=== PATIENT | female | born 1965 | race Caucasian/White ===

== ENCOUNTER 2016-07-18 23:35 | Emergency (ER) | payer SELFPAY ==
[2016-07-19 00:37] LABS: Basophils % (Auto) 0.9 % (0.0-1.8); Eosinophils % (Auto) 3.2 % (0.0-4.3); Hemoglobin 15.7 gm/dl (10.1-14.3); Mean Corpuscular HGB Conc 34 % (30-34); Mean Corpuscular Hemoglobin 29 pg (28-32); Mean Corpuscular Volume 84 fl (79-97); Platelet Count 254 K/mm3 (140-440); Red Blood Count 5.45 M/mm3 (3.65-5.03); Red Cell Distribution Width 12.5 % (13.2-15.2); White Blood Count 6.6 K/mm3 (4.5-11.0)
[2016-07-19 00:49] LABS: INR 1.03 (0.87-1.13)
[2016-07-19 01:00] LABS: Anion Gap 20 mmol/L; Blood Urea Nitrogen 12 mg/dL (7-17); Calcium 9.5 mg/dL (8.4-10.2); Carbon Dioxide 25 mmol/L (22-30); Chloride 98.2 mmol/L (98-107); Glucose 241 mg/dL (65-100); Potassium 3.9 mmol/L (3.6-5.0); Sodium 139 mmol/L (137-145)
[2016-07-19] MEDS ORDERED: TYLENOL PO ONE (05:17)
[2016-07-19 05:18] VITALS: BP 112/73
--- NOTE | 2016-07-21 14:29 | ED Elopement Review ---
ED Pt Elopement review - Results review Lab results: Laboratory Tests 07/19/16 07/19/16 07/19/16 00:18 00:18 00:18 WBC 6.6 RBC 5.45 H Hgb 15.7 H Hct 46.0 H MCV 84 MCH 29 MCHC 34 RDW 12.5 L Plt Count 254 Lymph % (Auto) 34.9 Hamilton % (Auto) 10.6 H Eos % (Auto) 3.2 Baso % (Auto) 0.9 Lymph # 2.3 Hamilton # 0.7 Eos # 0.2 Baso # 0.1 Seg Neutrophils % 50.4 Seg Neutrophils # 3.3 PT 13.4 INR 1.03 APTT 31.0 Carbon Dioxide 25 BUN 12 Creatinine 0.5 L Estimated GFR > 60 BUN/Creatinine Ratio 24.00 Glucose 241 H Calcium 9.5 Troponin T < 0.010 07/19/16 07/19/16 03:17 06:14 WBC RBC Hgb Hct MCV MCH MCHC RDW Plt Count Lymph % (Auto) Hamilton % (Auto) Eos % (Auto) Baso % (Auto) Lymph # Hamilton # Eos # Baso # Seg Neutrophils % Seg Neutrophils # PT INR APTT Carbon Dioxide BUN Creatinine Estimated GFR BUN/Creatinine Ratio Glucose Calcium Troponin T < 0.010 < 0.010 - Call Back decision Pt Call Back Decision: No action required
== END 2016-07-19 07:57 | disposition left against medical advice (07) ==
LOC: ED 23:35
DX: R51 Headache (principal); R07.9 Chest pain, unspecified; R00.2 Palpitations; Z53.21 Procedure and treatment not carried out due to patient leaving prior to being seen by health care provider
CPT/HCPCS: 36415; 80048; 84484; 85025; 85610; 85730; 93005; 93010

== ENCOUNTER 2017-03-04 02:09 | Emergency (ER) | payer BC ==
[2017-03-04 02:15] VITALS: BP 121/85
[2017-03-04] MEDS ORDERED: DILAUDID ONE (02:22)
[2017-03-04] MEDS ORDERED: ZOFRAN ODT ONE (02:22)
[2017-03-04] MEDS ORDERED: DILAUDID IM ONE (02:38)
[2017-03-04] MEDS ORDERED: ZOFRAN ODT PO ONE (02:38)
[2017-03-04] MEDS ORDERED: THERMAZENE 50 GRAM TP ONE (03:14)
[2017-03-04] MEDS ORDERED: BOOSTRIX IM ONE (03:14)
[2017-03-04] MEDS ORDERED: PERCOCET 5/325 PO ONE ×2 (03:22→03:57)
[2017-03-04] MEDS ORDERED: PERCOCET 5/325 ONE (03:25)
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
[2017-03-04] MEDS ORDERED: TORADOL IM ONE (03:57)
== END 2017-03-04 04:15 | disposition home or self-care (01) ==
LOC: ED 02:09
DX: T23.271A Burn of second degree of right wrist, initial encounter (principal); T31.0 Burns involving less than 10% of body surface; E11.9 Type 2 diabetes mellitus without complications; X08.8XXA Exposure to other specified smoke, fire and flames, initial encounter; Y93.89 Activity, other specified; Y99.8 Other external cause status; Y92.89 Other specified places as the place of occurrence of the external cause
CPT/HCPCS: 16020; 90471; 90715; 96372; 99283; J1170; J1885; Q0162